=== PATIENT | male | born 2000 | race Caucasian/White ===

== ENCOUNTER 2021-02-04 17:40 | Emergency (ER) | payer OTHER ==
[~2021-02-04 17:40] MED LIST: NAPROSYN500 MG PO; PEPCID20 MG PO; PREDNISONE 50 M50 MG PO; TAMIFLU 75 MG C75 MG PO; ZOFRAN ODT 4 MG4 MG PO; ZYRTEC10 MG PO
[2021-02-04 18:34] LABS: HEMOGLOBIN 13.3 gm/dl (14.0-17.5); RED BLOOD COUNT 4.35 M/UL (4.20-5.50); WHITE BLOOD COUNT 5.7 K/UL (4.5-11.0)
[2021-02-04 18:55] LABS: BUN/CREATININE RATIO 11 (0-10)
== END 2021-02-04 20:46 | disposition home or self-care (01) ==
LOC: ER1 17:40
PROVIDERS: Nurse Practitioner
DX: R73.9 Hyperglycemia, unspecified (principal); R55 Syncope and collapse
CPT/HCPCS: 80053; 80307; 81001; 82009; 82550; 82553; 82803; 83874; 84484; 85025; 93005; 99284